=== PATIENT | female | born 2000 | race Caucasian/White ===

== ENCOUNTER 2018-06-09 21:36 | Emergency (ER) | payer OTHER ==
[2018-06-09] MEDS ORDERED: NS 1,000 ML IV ONE (22:03)
[2018-06-09] MEDS ORDERED: LORazepam 2 MG/ML INJ IVP ONE (22:43)
[2018-06-09] MEDS ORDERED: IOPAMIDOL (ISOVUE 370) 100 ML BTL IV ONE (22:51)
== END 2018-06-10 03:38 | disposition home or self-care (01) ==
DX: R47.1 Dysarthria and anarthria (principal); R29.702 NIHSS score 2; E86.9 Volume depletion, unspecified; Z79.3 Long term (current) use of hormonal contraceptives; Z97.5 Presence of (intrauterine) contraceptive device